=== PATIENT | female | born 1950 | race Caucasian/White ===

== ENCOUNTER → 2017-12-10 | Outpatient (CLI) | payer BC, OTHER | END | disposition home or self-care (01) | LOC: RAH 08:21 | PROVIDERS: ATTEND Nurse Practitioner Family | DX: Z12.31 Encounter for screening mammogram for malignant neoplasm of breast (principal) | CPT/HCPCS: 77067 ==

== ENCOUNTER → 2018-12-21 | Outpatient (CLI) | payer BC, OTHER | END | disposition home or self-care (01) | LOC: RAH 10:38 | PROVIDERS: ATTEND Nurse Practitioner Family | DX: Z12.31 Encounter for screening mammogram for malignant neoplasm of breast (principal) | CPT/HCPCS: 77067 ==

== ENCOUNTER → 2020-02-16 | Outpatient (CLI) | payer BC, MEDICARE | END | disposition home or self-care (01) | LOC: RAH 10:21 | PROVIDERS: ATTEND Nurse Practitioner Family | DX: Z12.31 Encounter for screening mammogram for malignant neoplasm of breast (principal) | CPT/HCPCS: 77067 ==

== ENCOUNTER → 2021-03-24 | Outpatient (CLI) | payer BC, MEDICARE | END | disposition home or self-care (01) | LOC: RAH 07:57 | PROVIDERS: ATTEND Nurse Practitioner Family | DX: Z12.31 Encounter for screening mammogram for malignant neoplasm of breast (principal) | CPT/HCPCS: 77067 ==

== ENCOUNTER → 2023-03-26 | Outpatient (CLI) | payer MEDICARE | END | disposition home or self-care (01) | LOC: RAH 07:58 | PROVIDERS: ATTEND Internal Medicine | DX: Z12.31 Encounter for screening mammogram for malignant neoplasm of breast (principal) | CPT/HCPCS: 77067 ==

== ENCOUNTER → 2024-04-12 | Outpatient (CLI) | payer BC, OTHER ==
--- NOTE | 2024-04-13 08:38 | HMCIMG ---
MAMMO SCREENING BILATERAL HISTORY: Screening mammogram. COMPARISON: 03/26/2023 TECHNIQUE: Bilateral screening mammogram with CAD was performed with craniocaudal and mediolateral oblique projections. FINDINGS: There are scattered areas of fibroglandular density. There is no evidence of a dominant mass, or suspicious microcalcification. There is no evidence of nipple retraction or skin thickening. IMPRESSION: 1. Stable mammogram. Patient was entered into a reminder system with a target due date for their next mammogram. BI-RADS: CATEGORY 2: BENIGN FINDINGS Recommend monthly self breast exam as well as annual clinical examination. A negative x-ray should not delay biopsy if a dominant or clinically suspicious mass is present, since 8-10% of cancers are not identified by mammography. Dense breasts particularly, may obscure an underlying neoplasm. Some of these may be detected clinically and therefore, clinical examination is an essential part of breast evaluation.
== END | disposition home or self-care (01) ==
LOC: RAH 15:24
PROVIDERS: ATTEND Internal Medicine
DX: Z12.31 Encounter for screening mammogram for malignant neoplasm of breast (principal); R92.323 Mammographic fibroglandular density, bilateral breasts
CPT/HCPCS: 77067

== ENCOUNTER → 2025-02-03 | Outpatient (CLI) | payer OTHER ==
--- NOTE | 2025-02-03 15:14 | HMCIMG ---
EXAM: CR LUMBOSACRAL SPINE, 4 VIEWS CLINICAL HISTORY: LOW BACK PAIN COMPARISON: None provided TECHNIQUE: Frontal, lateral, flexion, and extension radiographs of the lumbosacral spine were obtained. FINDINGS: Vertebrae: Preserved vertebral body height. Heterogeneous trabecular pattern noted in the examined vertebrae. No obvious fracture or gross destructive lesion seen. Vertebral alignment: Grade I anterolisthesis of L4 over L5 vertebrae. No significant change in the degree of anterolisthesis on flexion and extension views. Discs: Narrowing of L4L5 and L5S1 intervertebral disc space heights. Spondylodegenerative Changes: Evidence of anterior osteophyte formation at lower lumbar levels. IMPRESSION: 1. Grade I anterolisthesis of L4 over L5 without dynamic instability on flexion-extension. 2. Degenerative disc disease at L4L5 and L5S1. 3. 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 4. Heterogeneous vertebral trabecular pattern likely osteoporotic without acute fracture or destructive osseous lesion. 5. Several stable chronic and incidental findings are noted, as detailed in the body of the report. /[place]
--- NOTE | 2025-02-03 17:04 | HMCIMG ---
EXAM: CR THORACIC SPINE, 2 VIEWS CLINICAL HISTORY: Scoliosis Thoracic Stitching COMPARISON: None provided TECHNIQUE: Two radiographs of the thoracic spine were obtained. FINDINGS: Vertebrae: T11 /T/ to greater extent T12 reduced anterior /T/ central vertebral body heights Marginal anterior osteophytic lipping of the opposing vertebral end plates. Vertebral alignment: Unremarkable. There is preservation of the normal thoracic kyphosis. Discs: Narrowed multi-level mid and lower dorsal discs spaces height Heterogenous osteopenic texture of the examined vertebrae. Visualized soft tissues: Unremarkable. IMPRESSION: 1. Dorsal spondylodegenerative changes. 2. T11 /T/ T12 vertebral bodies wedging. 3. Narrowed multi-level mid and lower dorsal discs spaces height. 4.Osteopenic texture of the examined vertebrae. /[place]
--- NOTE | 2025-02-04 10:17 | HMCIMG ---
EXAM: CR THORACIC/LUMBAR SPINE - SCOLIOSIS, 1 VIEW CLINICAL HISTORY: Scoliosis. COMPARISON: None provided TECHNIQUE: Frontal view of the thoracic and lumbar spine was obtained. FINDINGS: There is mild thoracolumbar scoliosis with right convexity with Ferrell angle measuring 17.8 degrees. There are 12 pairs of ribs. IMPRESSION: 1. Mild thoracolumbar scoliosis with right convexity with Ferrell angle of 17.8 degrees. /[place]
== END | disposition home or self-care (01) ==
LOC: RAH 09:22
PROVIDERS: ATTEND Physical Medicine & Rehabilitation
DX: M47.817 Spondylosis without myelopathy or radiculopathy, lumbosacral region (principal); M99.05 Segmental and somatic dysfunction of pelvic region; M41.85 Other forms of scoliosis, thoracolumbar region; M48.54XA Collapsed vertebra, not elsewhere classified, thoracic region, initial encounter for fracture; M85.88 Other specified disorders of bone density and structure, other site; M51.34 Other intervertebral disc degeneration, thoracic region; M51.379 Other intervertebral disc degeneration, lumbosacral region without mention of lumbar back pain or lower extremity pain; M51.360 Other intervertebral disc degeneration, lumbar region with discogenic back pain only; M43.16 Spondylolisthesis, lumbar region; M25.78 Osteophyte, vertebrae; M48.07 Spinal stenosis, lumbosacral region
CPT/HCPCS: 72070; 72081; 72114